=== PATIENT | female | born 1980 | race Asian ===

== ENCOUNTER 2019-01-08 07:28 | Day surgery (SDC) | payer OTHER ==
[2019-01-07 13:40] VITALS: BMI 25.9
[2019-01-08] MEDS ORDERED: DEXAMETHASONE SOD PHOSPHATE 4 MG/1 ML VIAL ONE (08:19)
[2019-01-08] MEDS ORDERED: PROPOFOL 20 ML ONE ×2 (08:19→09:17)
[2019-01-08] MEDS ORDERED: MIDAZOLAM HCL 2 MG/2 ML SINGLE DOSE VIAL ONE (08:19)
[2019-01-08] MEDS ORDERED: LIDOCAINE HCL/PF 2% SDV 5ML VIAL ONE (08:19)
[2019-01-08] MEDS ORDERED: KETOROLAC TROMETHAMINE 30 MG/1 ML VIAL ONE (08:21)
[2019-01-08] MEDS ORDERED: LIDOCAINE HCL 1%, 10 MG/ML (20ML VIAL) ONE (08:48)
[2019-01-08] MEDS ORDERED: DEXMEDETOMIDINE HCL 200 MCG/2 ML IVPB ONE (09:00)
[2019-01-08] MEDS ORDERED: LIDOCAINE HCL 1%, 10 MG/ML (20ML VIAL) NR ONE ×2 (09:05→09:26)
[2019-01-08] MEDS ORDERED: ceFAZolin SODIUM 1 GM VIAL ONE (09:20)
[2019-01-08] MEDS ORDERED: ceFAZolin SODIUM 1 GM VIAL IVPB ONE (09:22)
[2019-01-08] MEDS ORDERED: ONDANSETRON 4 MG/2 ML VIAL IVPUSH PRN (09:42)
[2019-01-08] MEDS ORDERED: oxyCODONE HCL 5 MG TABLET PO PRN (09:42)
[2019-01-08] MEDS ORDERED: LACTATED RINGERS SOLUTION 1,000 ML IV SCH (09:45)
--- NOTE | 2019-01-08 10:51 | OP ---
DATE OF OPERATION: 01/08/2019 PREOPERATIVE DIAGNOSIS: Right axillary mass. POSTOPERATIVE DIAGNOSIS: Right axillary mass. PROCEDURE: Excision of right axillary mass. SURGEON: Tamanna Solomon MD ANESTHESIA: Local with IV sedation. ESTIMATED BLOOD LOSS: Minimal. COMPLICATIONS: None. This was a sterile procedure. INDICATIONS FOR PROCEDURE: Patient presented with an axillary mass that was starting to increase in size and uncomfortable. Therefore, recommendation was an excision. The procedure was discussed with all her questions answered. PROCEDURE IN DETAIL: Patient brought to [facility] in [place], taken into the operating room and after IV sedation and IV antibiotics the right axilla and breast were prepped and draped in the usual sterile fashion. The area in the right axilla was anesthetized with 1% lidocaine without epinephrine. An ellipse of skin was taken to include the skin overlying this mass and a complete excision of the axillary mass was performed. This was sent to Pathology for permanent section. Hemostasis assured with electrocautery. The parenchyma approximated with interrupted 2-0 Vicryl. Skin approximated with 3-0 Vicryl and running 4-0 Biosyn. A sterile dressing of Steri-Strips, Tegaderm was applied. She tolerated procedure well, was taken to recovery in good condition. TAMANNA SOLOMON M.D. [id number]
[2019-01-08 12:00] VITALS: TEMP 97.6
[2019-01-08 13:59] VITALS: BP 114/64; PULSE 60
--- NOTE | 2019-01-11 18:47 | PATH ---
Surgical Pathology Report Patient Name: CASTILLO NORWOOD Med. Rec. #: [id number] /Age/Gender: 1980 (Age: 38) / F Account: [id number] Location: [facility] SURGICAL Taken: 01/08/2019 Received: 01/08/2019 Reported: 01/11/2019 Physicians: Tamanna Burnett M.D. Specimen(s) Received RIGHT AXILLARY MASS Clinical History Right axillary mass Final Diagnosis AXILLARY MASS, RIGHT, EXCISION: MATURE FIBROADIPOSE TISSUE CONSISTENT WITH LIPOMA. AXILLARY SKIN WITHOUT SIGNIFICANT PATHOLOGIC FINDINGS. Electronically Signed Marry Mcbride M.D. Gross Description Received in formalin labeled "right axillary mass," is a 6.5 x 3.5 x 3.0 cm unoriented portion of fibroadipose tissue. There is no needle localization wire present. The specimen is surfaced by a 6.5 x 2.6 cm patel, elliptical, unremarkable portion of skin. The specimen is inked blue and serially sectioned. Sectioning reveals homogeneous yellow, smooth fat. No fibrous tissue is identified. [employer] sections are submitted in 6 cassettes. /01/09/2019 [facility]/01/09/2019
== END 2019-01-08 12:40 | disposition home or self-care (01) ==
LOC: JASU-SURG 07:28
PROVIDERS: ATTEND Surgery
PROC: 0JB60ZX Excision of Chest Subcutaneous Tissue and Fascia, Open Approach, Diagnostic (ICD-10-PCS; principal; 2019-01-08 09:00)
DX: D17.1 Benign lipomatous neoplasm of skin and subcutaneous tissue of trunk (principal)
CPT/HCPCS: 84703; 88304-TC; 94760